=== PATIENT | male | born 1940 | race Caucasian/White ===

== ENCOUNTER 2016-08-04 20:47 | Emergency (ER) | payer MEDICARE, BC ==
[~2016-08-04 20:47] MED LIST: ALPRAZOLAM PO; AMBIEN PO; ERYTHROMYCIN O3.5 GM OD; LISINOPRIL PO; LORTAB 7.5-5001 TAB PO; TOBRADEX EYE O3.5 G1 OD; TRICOR PO; ZOCOR PO
== END 2016-08-04 22:14 | disposition home or self-care (01) ==
LOC: CED 20:47
DX: C41.9 Malignant neoplasm of bone and articular cartilage, unspecified (principal); I10 Essential (primary) hypertension
CPT/HCPCS: 99283

== ENCOUNTER 2016-11-08 14:06 | Emergency (ER) | payer MEDICARE, BC ==
[~2016-11-08] VITALS: Ht 177.8 cm; Wt 52.2 kg
== END 2016-11-08 15:00 | disposition home or self-care (01) ==
LOC: CED 14:06
DX: T63.461A Toxic effect of venom of wasps, accidental (unintentional), initial encounter (principal); I10 Essential (primary) hypertension; Z90.49 Acquired absence of other specified parts of digestive tract
CPT/HCPCS: 99282